=== PATIENT | male | born 1960 | race Caucasian/White ===

== ENCOUNTER 2024-07-04 09:13 | Inpatient (IN) | payer MEDICARE, OTHER ==
[~2024-07-04] VITALS: Ht 172.7 cm; Wt 74.0 kg
--- NOTE | 2024-07-04 10:42 | ED.PDOC ---
Musculoskeletal HPI Comments A 64 YEAR OLD MALE PRESENTS TO THE ED WITH COMPLAINT OF LEFT CALF SWELLING AND BEHIND KNEE PAIN. PATIENT REPORTS THAT HE HAS BEEN EXPERIENCING PAIN BEHIND HIS LEFT KNEE ALONG WITH ASSOCIATED SWELLING AND MILD REDNESS TO THE LEFT CALF FOR THE PAST WEEK. WALKING AND STANDING INCREASES LEFT LOWER LEG PAIN. PATIENT DENIES FEVER, CHILLS, NUMBNESS, WEAKNESS, SHORTNESS OF BREATH, CHEST PAIN, OR OTHER COMPLAINTS. NO OTHER SYMPTOMS OR MODIFYING FACTORS AT THIS TIME. Chief Complaint: Lower Extremity Time Seen by MD: 10:38 Reviewed Notes: Nurses Notes, Medications, Allergies Allergies: Coded Allergies: NO KNOWN ALLERGIES (Unverified , 07/04/24) Information Source: Patient Mode of Arrival: Ambulatory Location: Left Extremity Location: Calf, Knee, Leg Timing: Weeks Prehospital treatment: None Severity: Moderate Able to Move Extremity: Yes Bear Weight: Fully Pain: Moderate Mechanism: Spontaneous Circumstances: Spontaneous Onset of Symptoms: Spontaneous Symptoms: Swelling, Pain, Erythema DVT Risk Factors: NONE Last Tetanus: UTD, Unknown Associated signs and symptoms: Swelling, Leg pain Past Medical History PAST MEDICAL HISTORY: Denies Surgical History: Denies all surgeries Family History Family History: Reviewed,noncontributory to illness Social History Smoker: Non-Smoker Alcohol: Denies ETOH Use Drugs: Denies Drug Use Lives In: Home Constitutional: denies: chills, diaphoresis, fatigue, fever, malaise, sweats, weakness, others EENTM: denies: blurred vision, double vision, ear bleeding, ear discharge, ear drainage, ear pain, ear ringing, eye pain, eye redness, hearing loss, mouth pain, mouth swelling, nasal discharge, nose bleeding, nose congestion, nose pain, photophobia, tearing, throat pain, throat swelling, voice changes, others Respiratory: denies: cough, hemoptysis, orthopnea, SOB at rest, shortness of breath, SOB with excertion, stridor, wheezing, others Cardiovascular: denies: chest pain, dizzy spells, diaphoresis, Dyspnea on exertion, edema, irregular heart beat, left arm pain, lightheadedness, palpitations, PND, syncope, others Gastrointestinal: denies: abdomen distended, abdominal pain, blood streaked bowels, constipated, diarrhea, dysphagia, difficulty swallowing, hematemesis, melena, nausea, poor appetite, poor fluid intake, rectal bleeding, rectal pain, vomiting, others Genitourinary: denies: burning, dysuria, flank pain, frequency, hematuria, incontinence, penile discharge, penile sore, pain, testicle pain, testicle swelling, urgency, others Neurological: denies: dizziness, fainting, headache, left sided numbness, left sided weakness, numbness, paresthesia, pre-existing deficit, right sided numbness, right sided weakness, seizure, speech problems, tingling, tremors, weakness, others Musculoskeletal: reports: muscle pain (LEFT LOWER LEG ), others (LEFT BEHIND KNEE PAIN AND CALF SWELLING/REDNESS); denies: back pain, gout, joint pain, joint swelling, muscle stiffness, neck pain Integumetry: denies: bruises, change in color, change in hair/nails, dryness, laceration, lesions, lumps, rash, wounds, others Allergic/Immunocompromised: denies: Difficulty Healing, Frequent Infections, Hives, Itching, others Hematologic/Lymphatic: denies: anemia, blood clots, easy bleeding, easy bruising, swollen glands, others Endocrine: denies: excessive hunger, excessive sweating, excessive thirst, excessive urination, flushing, intolerance to cold, intolerance to heat, unexplained weight gain, unexplained weight loss, others Psychiatric: denies: anxiety, bipolar disorder, depression, hopeless, panic disorder, schizophrenia, sleepless, suicidal, others All Other Systems: Reviewed and Negative Physical Exam General Appearance: No Apparent Distress, Normal HEENT: Normal ENT Inspection, PERRL/EOMI, Pharynx Normal Neck: Full Range of Motion, Non-Tender, Normal, Normal Inspection Respiratory: Chest Non-Tender, Lungs Clear, No Accessory Muscle Use, No Respiratory Distress, Normal Breath Sounds Cardiovascular: No Edema, No JVD, No Murmur, No Gallop, Normal Peripheral Pulses, Regular Rate/Rhythm Breast Exam: Deferred Gastrointestinal: No Organomegaly, Non Tender, No Pulsatile Mass, Normal Bowel Sounds, Soft Genitalia: Deferred Pelvic: Deferred Rectal: Deferred Extremities: Decreased range of motion, No calf tenderness, Normal capillary refill, No pedal edema, Swelling (AND TENDERNESS WITH MILD ERYTHEMA ON LEFT LOWER LEG, NO INFECTION SIGNS. ), Tender (AND SWELLING ON LEFT LOWER LEG, +DVT SIGNS. ) Musculoskeletal : Apperance: Normal Neurologic: Alert, mechanical apprentice II-XII nml as Tested, No Motor Deficits, Normal Affect, Normal Mood, No Sensory Deficits Cerebellar Function: Normal Reflexes: Normal Skin: Dry, Normal Color, Warm Peripheral Pulses: 2+ dorsalis pedis (R), 2+ dorsalis pedis (L) Lymphatic: No Adenopathy Was a procedure done? Was a procedure done?: No Differential Diagnosis EXT Differential Diagnosis: Cellulitis, Deep Vein Thrombosis, Strain X-Ray, Labs, Meds, VS Vital Signs Date Time Temp Pulse Resp B/P (MAP) Pulse Ox O2 Delivery O2 Flow Rate FiO2 07/04/24 10:26 107 18 96 Room Air 07/04/24 10:26 98.9 107 18 137/93 (108) 96 98.9 07/04/24 09:33 98.9 107 18 137/93 (108) 96 Lab Test 07/04/24 10:49 Range/Units White Blood Count 7.0 4.4-10.8 10^3/uL Red Blood Count 5.29 4.5-5.90 10^6/uL Hemoglobin 15.6 13.5-17.5 g/dL Hematocrit 45.6 41.0-53.0 % Mean Corpuscular Volume 86.3 80.0-100.0 fL Mean Corpuscular Hemoglobin 29.4 28.0-32.0 pg Mean Corpuscular Hemoglobin Concent 34.1 32.0-36.0 g/dL Red Cell Distribution Width 12.8 11.8-14.3 % Platelet Count 285 140-450 10^3/uL Mean Platelet Volume 7.3 6.9-10.8 fL Neutrophils (%) (Auto) 74.9 37.0-80.0 % Lymphocytes (%) (Auto) 14.1 10.0-50.0 % Monocytes (%) (Auto) 7.7 0.0-12.0 % Eosinophils (%) (Auto) 2.6 0.0-7.0 % Basophils (%) (Auto) 0.7 0.0-2.0 % Neutrophils # (Auto) 5.2 1.6-8.6 10 ^3/uL Lymphocytes # (Auto) 1.0 0.4-5.4 10 ^3/uL Monocytes # (Auto) 0.5 0-1.3 10 ^3/uL Eosinophils # (Auto) 0.2 0-0.8 10 ^3/uL Basophils # (Auto) 0 0-0.2 10 ^3/uL Nucleated Red Blood Cells 0.0 % Prothrombin Time 11.1 9.3-11.8 sec Prothrombin Time INR 1.05 0.9-1.15 Sodium Level 144 136-145 mmol/L Potassium Level 4.0 3.5-5.1 mmol/L Chloride Level 114 H 98-107 mmol/L Carbon Dioxide Level 22 20-31 mmol/L Anion Gap 8 5-15 Blood Urea Nitrogen 18 9-23 mg/dL Creatinine 1.15 0.700-1.30 mg/dL Glomerular Filtration Rate Calc 71 >90 mL/min BUN/Creatinine Ratio 15.7 10.0-20.0 Serum Glucose 106 74-106 mg/dL Calcium Level 9.7 8.7-10.4 mg/dL Current Medications Medications (Trade) Dose Ordered Sig/Dorian Route Start Time Stop Time Status Last Admin Enoxaparin Sodium (Lovenox) 70 mg ONCE ONCE SC 07/04/24 10:45 07/04/24 10:46 DC 07/04/24 10:49 Sodium Chloride 1,000 ml @ 125 mls/hr Q8H ONCE IV 07/04/24 11:30 07/04/24 19:29 07/04/24 11:53 X-Ray, Labs, Meds, VS Comment TREATMENT: 70MG LOVENOX SUBQ GIVEN AND 0.9 NS 125ML/HR Time of 1ST Reevaluation: 12:00 Reevaluation 1ST: Unchanged Patient Education/Counseling: Diagnosis, Treatment Family Education/Counseling: Diagnosis, Treatment Departure 1 Departure Time of Disposition: 12:00 Impression: Primary Impression: Acute deep vein thrombosis (DVT) of left lower extremity Qualified Codes: I82.432 - Acute embolism and thrombosis of left popliteal vein Disposition: ADMITTED INPATIENT Condition: Serious Critical Care Note Critical Care Time?: No Stability Stability form required: No Unstable for transfer: Requires medication, ED Physician Assesment, Possible rapid decline Heart Score Heart Score: Heart Score Response (Comments) Value History N/A 0 EKG N/A 0 Age N/A 0 Risk Factors N/A 0 Troponin N/A 0 Total 0 I personally scribed for JUSTEN FERNANDEZ ([email or web address]) on 07/04/24 at 10:42. Electronically submitted by Terence Duarte ([email or web address]). JUSTEN FERNANDEZ Jul 04, 2024 10:42
--- NOTE | 2024-07-04 10:45 | DVH ---
Left lower extremity venous duplex Clinical History: LEFT CALF PAIN Comparison: None Findings: Duplex Doppler evaluation of the deep venous system of the left lower extremity from the common femor al vein to the popliteal vein including color Doppler and spectral/pulsed waveform analysis was perfo rmed. The common femoral vein demonstrates appropriate compressibility and waveform variability . There is compressibility/patency of the great saphenous vein at the proximal thigh . Superficial femoral vein, popliteal vein, posterior tibial vein. Impression: LLE DVT. If clinical concern/symptoms persist or worsen, short-interval follow-up study is suggested.
[2024-07-04] MEDS: ENOXAPARIN SOD 80 MG/0.8ML SYRINGE SC ONE (10:49)
[2024-07-04 11:17] LABS: Basophils # (auto) 0 10 ^3/uL (0-0.2); Basophils % (auto) 0.7 % (0.0-2.0); Eosinophils # (auto) 0.2 10 ^3/uL (0-0.8); Eosinophils % (auto) 2.6 % (0.0-7.0); Hematocrit 45.6 % (41.0-53.0); Hemoglobin 15.6 g/dL (13.5-17.5); Lymphocytes % (auto) 14.1 % (10.0-50.0); Mean Corpuscular Hemoglobin 29.4 pg (28.0-32.0); Mean Corpuscular Hgb Conc. 34.1 g/dL (32.0-36.0); Mean Corpuscular Volume 86.3 fL (80.0-100.0); Monocytes # (auto) 0.5 10 ^3/uL (0-1.3); Monocytes % (auto) 7.7 % (0.0-12.0); Neutrophils # (auto) 5.2 10 ^3/uL (1.6-8.6); Neutrophils % (auto) 74.9 % (37.0-80.0); Platelet Count (auto) 285 10^3/uL (140-450); Red Blood Cells 5.29 10^6/uL (4.5-5.90); Red Cell Distribution Width 12.8 % (11.8-14.3)
[2024-07-04 11:18] LABS: Chloride 114 mmol/L (98-107); Sodium 144 mmol/L (136-145)
[2024-07-04 11:19] LABS: Anion Gap 8 (5-15); Calcium 9.7 mg/dL (8.7-10.4); Carbon Dioxide 22 mmol/L (20-31)
[2024-07-04 11:24] LABS: BUN/Creatinine Ratio 15.7 (10.0-20.0); Blood Urea Nitrogen 18 mg/dL (9-23); Glucose 106 mg/dL (74-106)
[2024-07-04 11:25] LABS: INR 1.05 (0.9-1.15); Prothrombin Time 11.1 sec (9.3-11.8)
[2024-07-04] MEDS: SODIUM CHLORIDE 0.9% 1,000 ML IV ONE (11:53)
[2024-07-04] MEDS ORDERED: ONDANSETRON HCL 4 MG/2 ML VIAL IV PRN (14:15)
[2024-07-04] MEDS ORDERED: ACETAMINOPHEN 325 MG TAB PO PRN (14:15)
[2024-07-04] MEDS ORDERED: HYDROcodone-ACET 5/325MG TAB PO PRN (14:15)
--- NOTE | 2024-07-04 15:29 | DVHHP2 ---
History of Present Illness Reason for Visit: Lower extremity DVT History of Present Illness 64-year-old male presented to the ED with complaint of left calf swelling and pain behind knee. Patient states he has had the pain x1 week. Patient also has mild redness to the left calf for the past week, patient states the pain is not as bad as when it started. Patient is able to walk however walking and standing increases left lower leg pain. Patient was started on Lovenox, and will be admitted to medical/surgical. 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 Patient states no history of any hematologic coagulation disorders, no family history, and no medical history for patient. Patient denies chest pain, headache, dizziness, diaphoresis, shortness of breath, abdominal pain, no nausea, vomiting, fever, or chills endorsed by the patient. Patient was admitted for further evaluation medical management. Past Medical History Denies Past Surgical History Denies all surgeries Family History Reviewed noncontributory to the management of this case Smoke: No ALCOHOL: none Drugs: None Lives: Alone Review of Systems Constitutional: No: Fever, Chills, Sweats, Weakness, Malaise, Other Eyes: No: Pain, Vision change, Conjunctivae inflammation, Eyelid inflammation, Other, Redness ENT: No: Ear pain, Ear discharge, Nose pain, Nose discharge, Nose congestion, Mouth pain, Mouth swelling, Throat pain, Throat swelling, Other Respiratory: No: Cough, Dry, Shortness of breath, SOB with excertion, Wheezing, Hemoptysis, Pleuritic Pain, Sputum, Wheezing, Other Cardiovascular: No: Chest Pain, Palpitations, Orthopnea, Paroxysmal Noc. Dyspnea, Edema, Lt Headedness, Other Gastrointestinal: No: Nausea, Vomiting, Abdominal Pain, Diarrhea, Constipation, Melena, Hematochezia, Other Genitourinary: No Dysuria, No Frequency, No Incontinence, No Hematuria, No Retention, No Other Musculoskeletal: leg pain (Left leg popliteal pain); No: other, neck pain, shoulder pain, arm pain, back pain, hand pain, foot pain Skin: No: Rash, Lesions, Jaundice, Bruising, Other Neurological: No: Weakness, Numbness, Incoordination, Change in speech, Confusion, Seizures, Other Allergies: Coded Allergies: NO KNOWN ALLERGIES (Unverified , 07/04/24) Medications Current Medications Medications Dose Ordered Sig/Dorian Route Start Time Stop Time Status Last Admin Dose Admin Acetaminophen 650 mg Q6HP PRN PO 07/04/24 14:15 Acetaminophen/ Hydrocodone Bitart 1 tab Q4HP PRN PO 07/04/24 14:15 Ondansetron HCl 4 mg Q4HP PRN IV 07/04/24 14:15 Enoxaparin Sodium 70 mg Q12HR SC 07/04/24 22:00 Exam Vital Signs Vital Signs Date Time Temp Pulse Resp B/P (MAP) Pulse Ox O2 Delivery O2 Flow Rate FiO2 07/04/24 10:26 107 18 96 Room Air 07/04/24 10: 98.9 137/93 (108) 98.9 General Appearance: Alert, Oriented X3, Cooperative, No acute distress HEENT: Atraumatic, PERRLA, EOMI, Mucous membr. moist/pink Respiratory: Clear to auscultation, Normal air movement Cardiovascular: Regular rate, Normal S1, Normal S2, No murmurs Abdominal: Normal bowel sounds, Soft, No tenderness, No hepatospenomegaly, No masses Extremities: No clubbing, No cyanosis, No edema, Normal pulses, No t enderness/swelling Skin: No rashes, No breakdown, No significant lesion Neuro: Normal gait, Normal speech, Strength at 5/5 X4 ext, Normal tone, Sensation intact, Cranial nerves 3-12 NL, Reflexes 2+ Psych/Mental Status: Mental status NL, Mood NL Labs/Xrays Labs, imaging and ED notes reviewed Labs Test 07/04/24 10:49 Range/Units White Blood Count 7.0 4.4-10.8 10^3/uL Red Blood Count 5.29 4.5-5.90 10^6/uL Hemoglobin 15.6 13.5-17.5 g/dL Hematocrit 45.6 41.0-53.0 % Mean Corpuscular Volume 86.3 80.0-100.0 fL Mean Corpuscular Hemoglobin 29.4 28.0-32.0 pg Mean Corpuscular Hemoglobin Concent 34.1 32.0-36.0 g/dL Red Cell Distribution Width 12.8 11.8-14.3 % Platelet Count 285 140-450 10^3/uL Mean Platelet Volume 7.3 6.9-10.8 fL Neutrophils (%) (Auto) 74.9 37.0-80.0 % Lymphocytes (%) (Auto) 14.1 10.0-50.0 % Monocytes (%) (Auto) 7.7 0.0-12.0 % Eosinophils (%) (Auto) 2.6 0.0-7.0 % Basophils (%) (Auto) 0.7 0.0-2.0 % Neutrophils # (Auto) 5.2 1.6-8.6 10 ^3/uL Lymphocytes # (Auto) 1.0 0.4-5.4 10 ^3/uL Monocytes # (Auto) 0.5 0-1.3 10 ^3/uL Eosinophils # (Auto) 0.2 0-0.8 10 ^3/uL Basophils # (Auto) 0 0-0.2 10 ^3/uL Nucleated Red Blood Cells 0.0 % Prothrombin Time 11.1 9.3-11.8 sec Prothrombin Time INR 1.05 0.9-1.15 Sodium Level 144 136-145 mmol/L Potassium Level 4.0 3.5-5.1 mmol/L Chloride Level 114 H 98-107 mmol/L Carbon Dioxide Level 22 20-31 mmol/L Anion Gap 8 5-15 Blood Urea Nitrogen 18 9-23 mg/dL Creatinine 1.15 0.700-1.30 mg/dL Glomerular Filtration Rate Calc 71 >90 mL/min BUN/Creatinine Ratio 15.7 10.0-20.0 Serum Glucose 106 74-106 mg/dL Calcium Level 9.7 8.7-10.4 mg/dL Assessment/Plan Assessment/Plan Acute Left lower extremity, popliteal vein DVT Admit to medical/surgical Started on Lovenox Consider Hematology consult outpatient FEN/PPX GI prophylaxis not indicated VTE prophylaxis-Lovenox Regular diet Plan discussed with: Patient My Orders Orders - TERI ROSE Procedure Category Date Status Time Admit ADMIT 07/04/24 Transmitted 14:15 Code Status CODE 07/04/24 Transmitted 14:15 Vital Signs JESSICA 07/04/24 In Process 14:15 Review Orders With JESSICA 07/04/24 In Process Adm. 14:15 Up Ad Khushbu JESSICA 07/04/24 In Process 14:15 Regular Diet DIET 07/04/24 Transmitted Dinner Acetaminophen Tablet PHA 07/04/24 In Process (Tylenol Tablet) 14:15 Notify Of Changes JESSICA 07/04/24 In Process From Base 14:15 Advance Directive JESSICA 07/04/24 In Process 14:15 Patient Condition ORDERS 07/04/24 Transmitted 14:15 Allergies JESSICA 07/04/24 In Process 14:15 Hydrocodone-Acet PHA 07/04/24 In Process 5/325mg Tab ([place] 14:15 Ondansetron Hcl PHA 07/04/24 In Process (Zofran) 14:15 Enoxaparin Sodium PHA 07/04/24 In Process (Lovenox) 22:00 Date of Service: Jul 04, 2024 Billing Provider: TERI ROSE Common Visit Codes: [id number] INP/OBS CARE (HIGH) TERI ROSE Jul 04, 2024 15:29
[2024-07-04] MEDS: ENOXAPARIN SOD 80 MG/0.8ML SYRINGE SC SCH (21:49)
[2024-07-05] VITALS (7 sets, daily range): BP systolic 96–123; BP diastolic 63–88; PULSE 74–84; RESP 16–18; TEMP 97.7–98.4; O2SAT 95–99
--- NOTE | 2024-07-05 14:20 | DVHPN2 ---
Subjective Patient continues to report having pain to left lower leg Reviewed: Care Plan, H&P, Labs, Medications Changes from previous H/P or p: No Changes General: Per HPI Eyes: No Pain, No Vision change, No Conjunctivae inflammation, No Eyelid inflammation, No Other, No Redness ENT: No Ear pain, No Ear discharge, No Nose pain, No Nose discharge, No Nose congestion, No Mouth pain, No Mouth swelling, No Throat pain, No Throat swelling, No Other Cardiovascular: No Chest Pain, No Palpitations, No Orthopnea, No Paroxysmal Noc. Dyspnea, No Edema, No Lt Headedness, No Other Respiratory: No Cough, No Dry, No Shortness of breath, No SOB with excertion, No Wheezing, No Hemoptysis, No Pleuritic Pain, No Sputum, No Other Gastrointestinal: No Nausea, No Vomiting, No Abdominal Pain, No Diarrhea, No Constipation, No Melena, No Hematochezia, No Other Genitourinary: No Dysuria, No Frequency, No Incontinence, No Hematuria, No Retention, No Other Musculoskeletal: No other, No neck pain, No shoulder pain, No arm pain, No back pain, No hand pain; leg pain (Left leg popliteal pain); No foot pain Skin: No Rash, No Lesions, No Jaundice, No Bruising, No Other Objective Vitals Vital Signs Date Time Temp Pulse Resp B/P (MAP) Pulse Ox O2 Delivery O2 Flow Rate FiO2 07/05/24 13:00 97.8 74 17 106/76 (86) 98 97.8 07/05/24 11:57 Room Air* 0 21 Intake/Output Intake and Output 07/05/24 07:00 Intake Total 0 ml Balance 0 ml Intake Oral 0 ml # Voids 1 General Appearance: Alert, Oriented X3, Cooperative, mild distress HEENT: Atraumatic, PERRLA Lungs: Clear to auscultation, Normal air movement Cardiovascular: Normal S1, Normal S2 Abdomen: Normal bowel sounds, Soft, No tenderness, No hepatospenomegaly Musculoskeletal: Normal sensory function, Normal motor function Neuro: Normal gait, Normal speech Psych/Mental Status: Mental status NL, Mood NL Medications Current Medications Medications Dose Ordered Sig/Dorian Route Start Time Stop Time Status Last Admin Dose Admin Acetaminophen 650 mg Q6HP PRN PO 07/04/24 14:15 Acetaminophen/ Hydrocodone Bitart 1 tab Q4HP PRN PO 07/04/24 14:15 Ondansetron HCl 4 mg Q4HP PRN IV 07/04/24 14:15 Enoxaparin Sodium 70 mg Q12HR SC 07/04/24 22:00 07/05/24 09:46 70 MG Laboratory Results Laboratory Tests 07/04/24 10:49 Labs and/or images reviewed: Labs reviewed by me, Image(s) reviewed by me Assessment/Plan Assessment/Plan Impression: -left lower extremity DVT, unprovoked Plan: -long discussion was made with the patient regarding medical history, questionable trauma, as well as activity level. Patient states that he does not go to see a doctor on a normal basis. 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 He denies having long periods of sitting. -continue anticoagulation with Lovenox -consultation with Dr. Aguiar for thrombectomy assessment -given lack of chest pain, dyspnea, normal SpO2, hold off on PE evaluation -pain management -coagulation disorder profile Total time spent with patient discussing and formulating plan of care: 35 minutes. Total time spent with patient and family regarding advance care plannin minutes. This medical document was created using an electronic medical record system with [employer] dictation system. Although this document has been carefully reviewed, there may still be some phonetic and typographical errors. These areas are purely typographical due to imperfections of the software programs, and do not reflect any compromise in the patient's medical care. Plan discussed with: Patient, Other (RN) My Orders Orders - JAMI BELL NP Procedure Category Date Status Time *Consult Dr. Aguiar CONS 07/05/24 Transmitted 14:03 Date of Service: Jul 05, 2024 Billing Provider: JAMI BELL NP Common Visit Codes: [id number] INP/OBS CARE(HIGH) Secondary Visit Codes: [id number] CARE PLAN 30 MINUTES JAMI BELL NP Jul 05, 2024 14:20
[2024-07-05 15:21] LABS: Prostate Specific Antigen 3.26 ng/mL (0.0-4.0)
[2024-07-05 15:25] LABS: Carcinoembryonic Antigen < 0.50 ng/mL (<=5.0)
--- NOTE | 2024-07-05 19:09 | DVHINCON2 ---
Date of service: Jul 05, 2024 History of Present Illness 64-year-old male presented to the ED with complaint of left calf swelling and pain behind knee. Patient states he has had the pain x1 week. Patient also has mild redness to the left calf for the past week, patient states the pain is not as bad as when it started. Patient is able to walk however walking and standing increases left lower leg pain. Patient was started on Lovenox, and will be admitted to medical/surgical. 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 Patient states no history of any hematologic coagulation disorders, no family history, and no medical history for patient. Patient denies chest pain, headache, dizziness, diaphoresis, shortness of breath, abdominal pain, no nausea, vomiting, fever, or chills endorsed by the patient. Patient was admitted for further evaluation medical management. Past Medical History Denies Past Surgical History Denies all surgeries Family History Reviewed noncontributory to the management of this case Smoke: No ALCOHOL: none Drugs: None Lives: Alone Past Medical History reviewed Family History: FH: lung cancer Allergies: Coded Allergies: NO KNOWN ALLERGIES (Unverified , 07/04/24) Current Medications Current Medications Medications (Trade) Dose Ordered Sig/Dorian Route PRN Reason Start Time Stop Time Status Last Admin Enoxaparin Sodium (Lovenox) 70 mg Q12HR SC 07/04/24 22:00 07/05/24 09:46 Review of Systems 10 pt ros otherwise negative Vital Signs Vital Signs Date Time Temp Pulse Resp B/P (MAP) Pulse Ox O2 Delivery O2 Flow Rate FiO2 07/05/24 16:41 97.9 81 17 107/70 (82) 97 97.9 07/05/24 11:57 Room Air* 0 21 Physical Exam nad s1 s2 rrr ctab soft nt/nd +LLE swelling Labs/Diagnostic Data Labs Test 07/05/24 16:14 07/05/24 14:30 07/04/24 10:49 Range/Units Lactate Dehydrogenase 196 120-246 U/L Carcinoembryonic Antigen < 0.50 <=5.0 ng/mL Prostate Specific Antigen 3.26 0.0-4.0 ng/mL White Blood Count 7.0 4.4-10.8 10^3/uL Red Blood Count 5.29 4.5-5.90 10^6/uL Hemoglobin 15.6 13.5-17.5 g/dL Hematocrit 45.6 41.0-53.0 % Mean Corpuscular Volume 86.3 80.0-100.0 fL Mean Corpuscular Hemoglobin 29.4 28.0-32.0 pg Mean Corpuscular Hemoglobin Concent 34.1 32.0-36.0 g/dL Red Cell Distribution Width 12.8 11.8-14.3 % Platelet Count 285 140-450 10^3/uL Mean Platelet Volume 7.3 6.9-10.8 fL Neutrophils (%) (Auto) 74.9 37.0-80.0 % Lymphocytes (%) (Auto) 14.1 10.0-50.0 % Monocytes (%) (Auto) 7.7 0.0-12.0 % Eosinophils (%) (Auto) 2.6 0.0-7.0 % Basophils (%) (Auto) 0.7 0.0-2.0 % Neutrophils # (Auto) 5.2 1.6-8.6 10 ^3/uL Lymphocytes # (Auto) 1.0 0.4-5.4 10 ^3/uL Monocytes # (Auto) 0.5 0-1.3 10 ^3/uL Eosinophils # (Auto) 0.2 0-0.8 10 ^3/uL Basophils # (Auto) 0 0-0.2 10 ^3/uL Nucleated Red Blood Cells 0.0 % Prothrombin Time 11.1 9.3-11.8 sec Prothrombin Time INR 1.05 0.9-1.15 Sodium Level 144 136-145 mmol/L Potassium Level 4.0 3.5-5.1 mmol/L Chloride Level 114 H 98-107 mmol/L Carbon Dioxide Level 22 20-31 mmol/L Anion Gap 8 5-15 Blood Urea Nitrogen 18 9-23 mg/dL Creatinine 1.15 0.700-1.30 mg/dL Glomerular Filtration Rate Calc 71 >90 mL/min BUN/Creatinine Ratio 15.7 10.0-20.0 Serum Glucose 106 74-106 mg/dL Calcium Level 9.7 8.7-10.4 mg/dL Assessment acute dvt occlusive htn Plan/Recommendation reviewed US imagies recommend thrombectomy, pt will consider it after risks benefits and alternatives check echo consider c/a/p CT lovenox suspected may thurners Plan discussed with: Patient KAYDEN PINEDO MD Jul 05, 2024 19:09
[2024-07-06 05:00] VITALS: BP 114/72; PULSE 98; RESP 18; TEMP 97; O2SAT 99
[2024-07-06 08:00] VITALS: BP 113/82; PULSE 82; RESP 18; TEMP 97.4; O2SAT 93
--- NOTE | 2024-07-06 08:42 | DVHPN2 ---
Progress Note Date Seen: Jul 06, 2024 Medical Necessity Reason Pt with a Central, PICC or Fol: No Objective vital signs Vital Sign Date Time Temp Pulse Resp B/P (MAP) Pulse Ox O2 Delivery O2 Flow Rate FiO2 07/06/24 05:00 97.0 98 18 114/72 (86) 99 97.0 07/05/24 20:00 Room Air* 0 21 Total Intake and Output 07/05/24 07/05/24 07/06/24 15:00 23:00 07:00 Intake Total 750 ml 200 ml Balance 750 ml 200 ml medications Current Medications Medications Dose Ordered Sig/Dorian Route Start Time Stop Time Status Last Admin Dose Admin Acetaminophen 650 mg Q6HP PRN PO 07/04/24 14:15 Acetaminophen/ Hydrocodone Bitart 1 tab Q4HP PRN PO 07/04/24 14:15 Ondansetron HCl 4 mg Q4HP PRN IV 07/04/24 14:15 Enoxaparin Sodium 70 mg Q12HR SC 07/04/24 22:00 07/05/24 21:51 70 MG Examination: GENERAL:Abnormal, HEENT:Abnormal, LUNGS:Abnormal, CVS:Abnormal, ABDOMEN:Abnormal laboratory and microbiology Laboratory Tests 07/04/24 10:49 Test 07/04/24 10:49 Range/Units Serum Glucose 106 74-106 mg/dL Problem List/Assessment/Plan Problem List/Assessment/Plan occlusive dvt htn leg pain r/o may thurner check cta recommend thrombectomy cont lovenox for now Plan discussed with: Patient My Orders My Orders Orders - KAYDEN PINEDO MD Procedure Category Date Status Time Cl Transcath Ther Non CL 07/05/24 Logged Thrombo 19:07 Plastic Mould Maker: Obtain ORDERS 07/05/24 Transmitted Consent For: 19:07 Echo 2d Mode Cardiac US 07/06/24 Logged DOP 19:[address] 07/06/24 Logged Contrast 08:38 Date of Service: Jul 06, 2024 Billing Provider: KAYDEN PINEDO MD Common Visit Codes: NOT BILLABLE KAYDEN PINEDO MD Jul 06, 2024 08:42
[2024-07-06 12:00] VITALS: BP 110/78; PULSE 70; RESP 18; TEMP 97.9; O2SAT 97
[2024-07-06] MEDS: IOHEXOL 350 MG/ML 100ML IJ ONE (12:35)
--- NOTE | 2024-07-06 13:27 | DVHPN2 ---
Subjective Patient continues to report having pain to left lower leg Reviewed: Care Plan, H&P, Labs, Medications Changes from previous H/P or p: No Changes General: Per HPI Eyes: No Pain, No Vision change, No Conjunctivae inflammation, No Eyelid inflammation, No Other, No Redness ENT: No Ear pain, No Ear discharge, No Nose pain, No Nose discharge, No Nose congestion, No Mouth pain, No Mouth swelling, No Throat pain, No Throat swelling, No Other Cardiovascular: No Chest Pain, No Palpitations, No Orthopnea, No Paroxysmal Noc. Dyspnea, No Edema, No Lt Headedness, No Other Respiratory: No Cough, No Dry, No Shortness of breath, No SOB with excertion, No Wheezing, No Hemoptysis, No Pleuritic Pain, No Sputum, No Other Gastrointestinal: No Nausea, No Vomiting, No Abdominal Pain, No Diarrhea, No Constipation, No Melena, No Hematochezia, No Other Genitourinary: No Dysuria, No Frequency, No Incontinence, No Hematuria, No Retention, No Other Musculoskeletal: No other, No neck pain, No shoulder pain, No arm pain, No back pain, No hand pain; leg pain (Left leg popliteal pain); No foot pain Skin: No Rash, No Lesions, No Jaundice, No Bruising, No Other Objective Vitals Vital Signs Date Time Temp Pulse Resp B/P (MAP) Pulse Ox O2 Delivery O2 Flow Rate FiO2 07/06/24 08:00 97.4 82 18 113/82 (92) 93 97.4 07/05/24 20:00 Room Air* 0 21 Intake/Output Intake and Output 07/06/24 07:00 Intake Total 950 ml Balance 950 ml Intake Oral 950 ml # Voids 2 # Bowel Movements 1 General Appearance: Alert, Oriented X3, Cooperative, mild distress HEENT: Atraumatic, PERRLA Lungs: Clear to auscultation, Normal air movement Cardiovascular: Normal S1, Normal S2 Abdomen: Normal bowel sounds, Soft, No tenderness, No hepatospenomegaly Musculoskeletal: Normal sensory function, Normal motor function Neuro: Normal gait, Normal speech Psych/Mental Status: Mental status NL, Mood NL Medications Current Medications Medications Dose Ordered Sig/Dorian Route Start Time Stop Time Status Last Admin Dose Admin Acetaminophen 650 mg Q6HP PRN PO 07/04/24 14:15 Acetaminophen/ Hydrocodone Bitart 1 tab Q4HP PRN PO 07/04/24 14:15 Ondansetron HCl 4 mg Q4HP PRN IV 07/04/24 14:15 Enoxaparin Sodium 70 mg Q12HR SC 07/04/24 22:00 07/06/24 10:33 70 MG Laboratory Results Laboratory Tests 07/04/24 10:49 Coagulation Test 07/05/24 16:14 Prothrombin Time Diluted Pending Dilute PT Confirmation Ratio Pending Thrombin Time Pending Dilute Gold Viper Venom (Lupus) Pending Lupus Anticoagulant Interpretation Pending Protein C Antigen Pending Protein S Antigen Pending Free Protein S Antigen Pending Factor V Leiden Mutation Pending Labs and/or images reviewed: Labs reviewed by me, Image(s) reviewed by me Assessment/Plan Assessment/Plan Impression: -left lower extremity DVT, unprovoked Plan: -events: No events overnight -continue anticoagulation with Lovenox -consultation with Dr. Aguiar: Recommendations reviewed by Dr. Aguiar. Patient to have echocardiogram as well as CT angiogram of the chest -pain management -coagulation disorder profile Total time spent with patient discussing and formulating plan of care: 35 minutes. This medical document was created using an electronic medical record system with [employer] dictation system. Although this document has been carefully reviewed, there may still be some phonetic and typographical errors. These areas are purely typographical due to imperfections of the software programs, and do not reflect any compromise in the patient's medical care. Plan discussed with: Patient, Other (RN) My Orders Orders - JAMI BELL NP Procedure Category Date Status Time *Consult Dr. Aguiar CONS 07/05/24 Transmitted 14:03 Lupus Anticoagulant LAB 07/05/24 In Process Comp 14:13 Protein C Antigen LAB 07/05/24 In Process 14:13 Protein S-Antigen LAB 07/05/24 In Process Total & Free 14:13 Factor V Leiden LAB 07/05/24 In Process Mutation 14:13 Date of Service: Jul 06, 2024 Billing Provider: JAMI BELL NP Common Visit Codes: [id number] INP/OBS CARE(HIGH) JAMI BELL NP Jul 06, 2024 13:27
--- NOTE | 2024-07-06 14:08 | DVH ---
CTA Chest with intravenous contrast INDICATION: ro PE, occlusive DVT< r/ o may thurner COMPARISON: None TECHNIQUE: Multidetector spiral CTA of the chest was performed of the chest with intravenous contrast . PULMONARY ANGIOGRAPHY PROTOCOL was utilized using a bolus-tracking technique centered on the main p ulmonary artery. Axial, coronal and sagittal multiplanar and MIP reformats were performed. Radiation Dose : 1. Chest: CTDI volume is 20.7 mGy. Dose-length product is 648.99 mGy*cm The dose indicators for CT are the volume Computed Tomography (CT) Dose Index (CTDIvol) and the Dose Length Product (DLP), and are measured in units of mGy and mGy-cm, respectively. These indicators are not patient dose, but values generated from the CT scanner acquisition factors. The report includes radiation exposure data for exposures received during this examination. Findings: Pulmonary artery: Positive pulmonary embolism involving the distal left main pulmonary artery extending into lower lobe segmental and subsegmental branches. Small pulmonary embolism is present in right lower lobe subsegm ental branches. Lower neck: Normal thyroid. Lungs: No focal consolidation, pleural effusion or pneumothorax. Dependent atelectasis. Heart/Vascular Structures: Cardiomegaly. Coronary artery calcifications. Vascular calcifications of t he aorta. No definite findings of right heart strain. Lymph Nodes: No adenopathy Pleura: No pleural effusion or significant pneumothorax. Musculoskeletal: No acute osseous abnormality. Soft tissues: Normal. Upper abdomen: Limited portions of the upper abdomen are unremarkable. IMPRESSION: Positive pulmonary embolism involving the distal left main pulmonary artery extending into segmental and subsegmental branches in the left lower lobe. Positive pulmonary embolism in right lower lobe segmental and subsegmental branches. No definite secondary CT signs of right heart strain. Recommend correlation with echocardiogram. Cl inical correlation advised. Critical Result: Pumonary Emboli Findings discussed with JAMI BELL at 07/06/2024 02:04 PM, and acknowledged receipt and unders tanding of the findings.
--- NOTE | 2024-07-06 15:47 | DVHSR ---
APPROVED REPORT EXAM: Two-dimensional and M-mode echocardiogram with Doppler and color Doppler. Blood Pressure: 114/72 mmHg INDICATION Hx of dvt HTN RISK FACTORS Height: 5'8", Weight: 164 DIMENSIONS LVDd4.1 (3.8-5.7cm)LA (2D)3.4 (1.9-4.0cm)Aortic Root3.3 (2.0-3.7cm) LVDs2.9 (2.5-4.0cm)LA (MM) (1.9-4.0cm)Aortic Cusp Exc1.9 (1.5-2.0cm) EF (%) 60.0 (55-70%)Rt. Atrium3.8 (1.9-4.0cm)Asc. Aorta cm IVSd1.1 (0.7-1.1cm)RV (D)3.4 (1.8-2.4cm) PWd0.9 (0.7-1.1cm) Mitral Valve MitralMitral Stenosis E wave0.64m/sMV Mean GR.mmHg A wave0.43m/sMV Peak GR.mmHg E/A ratio1.52D MVAcm2 DECEL [id number] 1/2 Timems Aortic Valve Aortic ValveAortic Stenosis V10.92m/Cori Mean GR.2mmHg V20.98m/Cori Peak GR.4mmHg LVOT Diameter2.0 (1.8-2.4cm)Doppler AVA2.95cm2 Pulmonic Valve V20.93m/s Tricuspid Valve TR Velocity2.28m/s [id number] Conclusion lvef 55% by visual estimate normal rv function but borderline enlarged left atrium enlarged mild mitral regurg
[2024-07-06 16:00] VITALS: BP 107/74; PULSE 67; RESP 18; TEMP 98.2; O2SAT 97
--- NOTE | 2024-07-07 11:16 | DVHPN2 ---
Progress Note Date Seen: Jul 07, 2024 Medical Necessity Reason Pt with a Central, PICC or Fol: No Subjective Patient reports: Feels better Other Systems: PE noted on CT images reviewed Objective vital signs Vital Sign Date Time Temp Pulse Resp B/P (MAP) Pulse Ox O2 Delivery O2 Flow Rate FiO2 07/07/24 08:00 Room Air* 0 21 07/06/24 16:00 98.2 67 18 107/74 (85) 97 98.2 Total Intake and Output 07/06/24 07/06/24 07/07/24 15:00 23:00 07:00 Intake Total 500 ml Balance 500 ml medications Current Medications Medications Dose Ordered Sig/Dorian Route Start Time Stop Time Status Last Admin Dose Admin Acetaminophen 650 mg Q6HP PRN PO 07/04/24 14:15 Acetaminophen/ Hydrocodone Bitart 1 tab Q4HP PRN PO 07/04/24 14:15 Ondansetron HCl 4 mg Q4HP PRN IV 07/04/24 14:15 Enoxaparin Sodium 70 mg Q12HR SC 07/04/24 22:00 07/07/24 10:12 70 MG Examination: GENERAL:Abnormal, HEENT:Abnormal, LUNGS:Abnormal, CVS:Abnormal, ABDOMEN:Abnormal laboratory and microbiology Laboratory Tests 07/04/24 10:49 Test 07/04/24 10:49 Range/Units Serum Glucose 106 74-106 mg/dL Problem List/Assessment/Plan Problem List/Assessment/Plan occlusive dvt htn leg pain r/o may urner check cta recommend thrombectomy cont lovenox for now PE noted---no elevated biomarker, on room air, no RV strain, no indication for thrombectomy of PE at this time had long talk with pt and RN he wishes to proceed with dvt eval d/w risks benefits and alternatives Plan discussed with: Patient Date of Service: Jul 07, 2024 Billing Provider: KAYDEN PINEDO MD Common Visit Codes: NOT BILLABLE KAYDEN PINEDO MD Jul 07, 2024 11:16
[2024-07-07 13:00] VITALS: BP 118/79; PULSE 67; RESP 16; TEMP 97.6; O2SAT 98
--- NOTE | 2024-07-07 13:32 | DVHPN2 ---
Subjective Patient continues to report having pain to left lower leg Reviewed: Care Plan, H&P, Labs, Medications Changes from previous H/P or p: No Changes General: Per HPI Eyes: No Pain, No Vision change, No Conjunctivae inflammation, No Eyelid inflammation, No Other, No Redness ENT: No Ear pain, No Ear discharge, No Nose pain, No Nose discharge, No Nose congestion, No Mouth pain, No Mouth swelling, No Throat pain, No Throat swelling, No Other Cardiovascular: No Chest Pain, No Palpitations, No Orthopnea, No Paroxysmal Noc. Dyspnea, No Edema, No Lt Headedness, No Other Respiratory: No Cough, No Dry, No Shortness of breath, No SOB with excertion, No Wheezing, No Hemoptysis, No Pleuritic Pain, No Sputum, No Other Gastrointestinal: No Nausea, No Vomiting, No Abdominal Pain, No Diarrhea, No Constipation, No Melena, No Hematochezia, No Other Genitourinary: No Dysuria, No Frequency, No Incontinence, No Hematuria, No Retention, No Other Musculoskeletal: No other, No neck pain, No shoulder pain, No arm pain, No back pain, No hand pain; leg pain (Left leg popliteal pain); No foot pain Skin: No Rash, No Lesions, No Jaundice, No Bruising, No Other Objective Vitals Vital Signs Date Time Temp Pulse Resp B/P (MAP) Pulse Ox O2 Delivery O2 Flow Rate FiO2 07/07/24 13:00 97.6 67 16 118/79 (92) 98 97.6 07/07/24 08:00 Room Air* 0 21 Intake/Output Intake and Output 07/07/24 07:00 Intake Total 500 ml Balance 500 ml Intake Oral 500 ml # Voids 4 # Bowel Movements 1 General Appearance: Alert, Oriented X3, Cooperative, mild distress HEENT: Atraumatic, PERRLA Lungs: Clear to auscultation, Normal air movement Cardiovascular: Normal S1, Normal S2 Abdomen: Normal bowel sounds, Soft, No tenderness, No hepatospenomegaly Musculoskeletal: Normal sensory function, Normal motor function Neuro: Normal gait, Normal speech Skin: Dry, Intact Psych/Mental Status: Mental status NL, Mood NL Medications Current Medications Medications Dose Ordered Sig/Dorian Route Start Time Stop Time Status Last Admin Dose Admin Acetaminophen 650 mg Q6HP PRN PO 07/04/24 14:15 Acetaminophen/ Hydrocodone Bitart 1 tab Q4HP PRN PO 07/04/24 14:15 Ondansetron HCl 4 mg Q4HP PRN IV 07/04/24 14:15 Enoxaparin Sodium 70 mg Q12HR SC 07/04/24 22:00 07/07/24 10:12 70 MG Laboratory Results Laboratory Tests 07/04/24 10:49 Labs and/or images reviewed: Labs reviewed by me, Image(s) reviewed by me Assessment/Plan Assessment/Plan Impression: -left lower extremity DVT, unprovoked -Left main pulmonary embolus Plan: -events: No events overnight -continue anticoagulation with Lovenox -cardiology consultation with Dr. Aguiar. Echocardiogram reviewed. Plans for thrombectomy tomorrow -pain management -coagulation disorder profile Total time spent with patient discussing and formulating plan of care: 35 minutes. This medical document was created using an electronic medical record system with [employer] dictation system. Although this document has been carefully reviewed, there may still be some phonetic and typographical errors. These areas are purely typographical due to imperfections of the software programs, and do not reflect any compromise in the patient's medical care. Plan discussed with: Patient, Other (RN) Date of Service: Jul 07, 2024 Billing Provider: JAMI BELL NP Common Visit Codes: [id number] INP/OBS CARE(HIGH) JAMI BELL NP Jul 07, 2024 13:32
[2024-07-07 17:00] VITALS: BP 100/75; PULSE 88; RESP 16; TEMP 97.7; O2SAT 97
[2024-07-07 22:00] VITALS: BP 102/73; PULSE 77; RESP 18; TEMP 98.3; O2SAT 97
[2024-07-08] VITALS (9 sets, daily range): BP systolic 87–108; BP diastolic 65–74; PULSE 65–112; RESP 12–18; TEMP 97.6–98.4; O2SAT 94–99
[2024-07-08 06:12] LABS: Basophils # (auto) 0 10 ^3/uL (0-0.2); Basophils % (auto) 0.7 % (0.0-2.0); Eosinophils # (auto) 0.2 10 ^3/uL (0-0.8); Eosinophils % (auto) 3.1 % (0.0-7.0); Hematocrit 44.3 % (41.0-53.0); Hemoglobin 15.2 g/dL (13.5-17.5); Lymphocytes # (auto) 1.3 10 ^3/uL (0.4-5.4); Lymphocytes % (auto) 22.4 % (10.0-50.0); Mean Corpuscular Hemoglobin 29.3 pg (28.0-32.0); Mean Corpuscular Hgb Conc. 34.3 g/dL (32.0-36.0); Mean Corpuscular Volume 85.4 fL (80.0-100.0); Monocytes # (auto) 0.5 10 ^3/uL (0-1.3); Monocytes % (auto) 9.1 % (0.0-12.0); Neutrophils # (auto) 3.8 10 ^3/uL (1.6-8.6); Neutrophils % (auto) 64.7 % (37.0-80.0); Nucleated Red Blood Cells % 0.2 %; Platelet Count (auto) 282 10^3/uL (140-450); Red Blood Cells 5.19 10^6/uL (4.5-5.90); Red Cell Distribution Width 12.7 % (11.8-14.3); White Blood Cell 5.8 10^3/uL (4.4-10.8)
[2024-07-08 06:20] LABS: INR 1.02 (0.9-1.15); Partial Thromboplastin Time 33.2 SEC (24.5-34.5); Prothrombin Time 10.8 sec (9.3-11.8)
[2024-07-08 06:21] LABS: Amphetamine Screen, Urine Neg (NEGATIVE); Barbiturate Scree,Urine Neg (NEGATIVE); Benzodiazephine Screen, Urine Neg (NEGATIVE); Cocaine Screen, Urine Neg (NEGATIVE)
[2024-07-08 06:22] LABS: Cannabinoid Screen, Urine Neg (NEGATIVE); Opiate Scree,Urine Neg (NEGATIVE); Phencyclidine Screen, Urine Neg (NEGATIVE)
[2024-07-08 06:36] LABS: Alanine Aminotransferase 47 U/L (7-40); Albumin 3.9 g/dL (3.2-4.8); Alkaline Phosphatase 98 U/L (46-116); Anion Gap 6 (5-15); Aspartate Aminotransferase 36 U/L (13-40); BUN/Creatinine Ratio 13.3 (10.0-20.0); Blood Urea Nitrogen 15 mg/dL (9-23); Calcium 9.3 mg/dL (8.7-10.4); Carbon Dioxide 24 mmol/L (20-31); Chloride 113 mmol/L (98-107); Glucose 92 mg/dL (74-106); Potassium 3.9 mmol/L (3.5-5.1); Sodium 143 mmol/L (136-145)
[2024-07-08 06:37] LABS: Bilirubin, Total 0.5 mg/dL (0.2-1.0); Total Protein 6.4 g/dL (5.7-8.2)
[2024-07-08 06:56] LABS: Urine Bacteria None Seen /hpf (None Seen)
[2024-07-08 07:21] LABS: Urine Blood Negative /uL (Negative); Urine Clarity Clear (Clear); Urine Color Yellow (Yellow); Urine Mucus FEW (None Seen); Urine Protein, UAD Negative (Negative); Urine Specific Gravity 1.025 (1.001-1.035); Urine Urobilinogen Normal (Negative); Urine WBC 2 /hpf (0 - 3); Urine pH 5.5 (5.0-9.0)
--- NOTE | 2024-07-08 11:39 | DVHPN2 ---
Subjective Patient continues to report having pain to left lower leg Reviewed: Care Plan, H&P, Labs, Medications Changes from previous H/P or p: No Changes General: Per HPI Eyes: No Pain, No Vision change, No Conjunctivae inflammation, No Eyelid inflammation, No Other, No Redness ENT: No Ear pain, No Ear discharge, No Nose pain, No Nose discharge, No Nose congestion, No Mouth pain, No Mouth swelling, No Throat pain, No Throat swelling, No Other Cardiovascular: No Chest Pain, No Palpitations, No Orthopnea, No Paroxysmal Noc. Dyspnea, No Edema, No Lt Headedness, No Other Respiratory: No Cough, No Dry, No Shortness of breath, No SOB with excertion, No Wheezing, No Hemoptysis, No Pleuritic Pain, No Sputum, No Other Gastrointestinal: No Nausea, No Vomiting, No Abdominal Pain, No Diarrhea, No Constipation, No Melena, No Hematochezia, No Other Genitourinary: No Dysuria, No Frequency, No Incontinence, No Hematuria, No Retention, No Other Musculoskeletal: No other, No neck pain, No shoulder pain, No arm pain, No back pain, No hand pain; leg pain (Left leg popliteal pain); No foot pain Skin: No Rash, No Lesions, No Jaundice, No Bruising, No Other Objective Vitals Vital Signs Date Time Temp Pulse Resp B/P (MAP) Pulse Ox O2 Delivery O2 Flow Rate FiO2 07/08/24 05:00 97.7 70 18 102/67 (79) 98 97.7 07/07/24 20:00 Room Air* 0 21 Intake/Output Intake and Output 07/08/24 07:00 Intake Total 885 ml Balance 885 ml Intake Oral 885 ml # Voids 2 # Bowel Movements 1 General Appearance: Alert, Oriented X3, Cooperative, mild distress HEENT: Atraumatic, PERRLA Lungs: Clear to auscultation, Normal air movement Cardiovascular: Normal S1, Normal S2 Abdomen: Normal bowel sounds, Soft, No tenderness, No hepatospenomegaly Musculoskeletal: Normal sensory function, Normal motor function Neuro: Normal gait, Normal speech Skin: Dry, Intact Psych/Mental Status: Mental status NL, Mood NL Medications Current Medications Medications Dose Ordered Sig/Dorian Route Start Time Stop Time Status Last Admin Dose Admin Acetaminophen 650 mg Q6HP PRN PO 07/04/24 14:15 Acetaminophen/ Hydrocodone Bitart 1 tab Q4HP PRN PO 07/04/24 14:15 Ondansetron HCl 4 mg Q4HP PRN IV 07/04/24 14:15 Enoxaparin Sodium 70 mg Q12HR SC 07/04/24 22:00 07/07/24 21:53 70 MG Laboratory Results Laboratory Tests 07/08/24 05:22 Chemistry Test 07/08/24 05:22 Albumin 3.9 g/dL (3.2-4.8) Calcium Level 9.3 mg/dL (8.7-10.4) Total Protein 6.4 g/dL (5.7-8.2) Coagulation Test 07/08/24 05:22 Prothrombin Time 10.8 sec (9.3-11.8) Prothrombin Time INR 1.02 (0.9-1.15) Activated Partial Thromboplast Time 33.2 SEC (24.5-34.5) LFT Test 07/08/24 05:22 Alanine Aminotransferase (ALT) 47 U/L (7-40) H Alkaline Phosphatase 98 U/L (46-116) Aspartate Amino Transferase (AST) 36 U/L (13-40) Total Bilirubin 0.5 mg/dL (0.2-1.0) Urinalysis Test 07/08/24 05:33 Urine Color Yellow (Yellow) Urine Clarity Clear (Clear) Urine pH 5.5 (5.0-9.0) Urine Specific [place] 1.025 (1.001-1.035) Urine Protein Negative (Negative) Urine Ketones Negative (Negative) Urine Blood Negative /uL (Negative) Urine Nitrite Negative (Negative) Urine Bilirubin Negative (Negative) Urine Urobilinogen Normal mg/dL (Negative) Urine Leukocyte Esterase Negative /uL (Negative) Urine RBC None seen /hpf (0 - 3) Urine WBC 2 /hpf (0 - 3) Urine Squamous Epithelial Cells None seen /hpf (<5) Urine Bacteria None seen /hpf (None Seen) Urine Mucus Few (None Seen) Urine Glucose Normal mg/dL (Normal) Labs and/or images reviewed: Labs reviewed by me, Image(s) reviewed by me Assessment/Plan Assessment/Plan Impression: -left lower extremity DVT, unprovoked -Left main pulmonary embolus Plan: -events: No events overnight. Plans for thrombectomy today. -hold Lovenox today. Transitioned to [facility] or tomorrow -cardiology consultation with Dr. Aguiar. Echocardiogram reviewed. -pain management -coagulation disorder profile: Pending -repeat labs in Total time spent with patient discussing and formulating plan of care: 35 minutes. This medical document was created using an electronic medical record system with [employer] dictation system. Although this document has been carefully reviewed, there may still be some phonetic and typographical errors. These areas are purely typographical due to imperfections of the software programs, and do not reflect any compromise in the patient's medical care. Plan discussed with: Patient, Other (RN) My Orders Orders - JAMI BELL NP Procedure Category Date Status Time Urine Dip ED NURSING 07/08/24 Transmitted Basic Metabolic Panel LAB 07/09/24 Verified 04:00 Hemoglobin & LAB 07/09/24 Verified Hematocrit 04:00 * Insurance Examining Clerk CONS 07/08/24 Transmitted Consult Date of Service: Jul 08, 2024 Billing Provider: JAMI BELL NP Common Visit Codes: [id number] INP/OBS CARE(HIGH) JAMI BELL NP Jul 08, 2024 11:39
[2024-07-08] MEDS: IODIXANOL 320MG/ML 100ML BTL IV ONE (15:00)
[2024-07-08] MEDS: HEPARIN IN NS 1000Units/500mL 1,500 ML ONE (15:00)
[2024-07-08] MEDS: ANGIOMAX 250 MG VIAL IV ONE (15:35)
[2024-07-08] MEDS: SODIUM CHL 0.9% 0 ML ONE (15:35)
[2024-07-08] MEDS: MIDAZOLAM HCL 2MG/2ML 2ml VIAL (1mg/ml) ONE (15:35)
[2024-07-08] MEDS: fentaNYL CITRATE 100 MCG/2 ML VL ONE (15:35)
[2024-07-08] MEDS: LIDOCAINE 2%HCL (LOCAL ANESTH.) INJ 20ML MDV ONE (15:36)
[2024-07-08] MEDS: HEPARIN SODIUM (PORCINE) 5000 UNITS/ML 1ML VIAL ONE (16:00)
--- NOTE | 2024-07-08 17:16 | DVHPN2 ---
Progress Note Date Seen: Jul 08, 2024 Medical Necessity Reason Pt with a Central, PICC or Fol: No Subjective Patient reports: Feels better Other Systems: sp thrombectomy Objective vital signs Vital Sign Date Time Temp Pulse Resp B/P (MAP) Pulse Ox O2 Delivery O2 Flow Rate FiO2 07/08/24 05:00 97.7 70 18 102/67 (79) 98 97.7 07/07/24 20:00 Room Air* 0 21 Total Intake and Output 07/07/24 07/07/24 07/08/24 15:00 23:00 07:00 Intake Total 560 ml 325 ml Balance 560 ml 325 ml medications Current Medications Medications Dose Ordered Sig/Dorian Route Start Time Stop Time Status Last Admin Dose Admin Acetaminophen 650 mg Q6HP PRN PO 07/04/24 14:15 Acetaminophen/ Hydrocodone Bitart 1 tab Q4HP PRN PO 07/04/24 14:15 Ondansetron HCl 4 mg Q4HP PRN IV 07/04/24 14:15 Enoxaparin Sodium 70 mg Q12HR SC 07/04/24 22:00 07/07/24 21:53 70 MG Examination: GENERAL:Abnormal, HEENT:Abnormal, LUNGS:Abnormal, CVS:Normal, ABDOMEN:Abnormal laboratory and microbiology Laboratory Tests 07/08/24 05:22 Test 07/08/24 05:22 Range/Units Serum Glucose 92 74-106 mg/dL Problem List/Assessment/Plan Problem List/Assessment/Plan occlusive dvt htn leg pain r/o may thurner check cta recommend thrombectomy cont lovenox for now PE noted---no elevated biomarker, on room air, no RV strain, no indication for thrombectomy of PE at this time had long talk with pt and RN he wishes to proceed with dvt eval d/w risks benefits and alternatives s/p thrombectomy with extensive thrombus removal resume blood thinners for pt doac pt may eventually need venous stent for suspected may thurners , pt is aware Plan discussed with: Patient My Orders My Orders Orders - KAYDEN PINEDO MD Procedure Category Date Status Time Cl Sc Inj Venogram CL 07/08/24 Taken Extremty Bi 07:36 Us Guided Vascular US 07/08/24 Logged Access 07:36 Yarn Weight And Strength Tester: Obtain ORDERS 07/08/24 Transmitted Consent For: 14:30 Us Guidance For US 07/08/24 Taken Needle Placeme 15:42 Date of Service: Jul 08, 2024 Billing Provider: KAYDEN PINEDO MD Common Visit Codes: NOT BILLABLE KAYDEN PINEDO MD Jul 08, 2024 17:16
--- NOTE | 2024-07-08 18:03 | DVHOP ---
DATE OF SURGERY: 07/08/2024 PREOPERATIVE DIAGNOSIS: Occlusive DVT with severe symptoms. POSTOPERATIVE DIAGNOSIS: Occlusive DVT with severe symptoms. This is a 54-year-old male coming in with a left lower extremity swelling and pain, inability to walk or ambulate. The patient denies a previous history of any medical conditions. He was found to have extensive DVT. Further evaluation showed bilateral PE, although he is on room air and asymptomatic from a pulmonary status, he was referred for DVT thrombectomy assessment. PROCEDURE PERFORMED: * Percutaneous transluminal mechanical thrombectomy, 21269. * Venography extremity unilateral, 72400. * Venography caval inferior, 95830. * Ultrasound-guided vascular access, saved to the PACS system, [id number]. * Injection procedure for extremity venography, 75700. * Introduction of catheter, IVC, 75460. * Selective catheter placement venous system, first order branch, 07958. * Selective catheter placement venous system, second order branch, 47901. DESCRIPTION OF PROCEDURE: The patient signed informed consent, understanding risks and benefits, and alternatives of the procedure, he wished to proceed. He was brought to the laborer livestock in a prone position. He was prepped in sterile fashion. I gave 5 mL 2% lidocaine to his left popliteal fossa. With ultrasound-guided access with robotic weld technician at the bedside, I cannulated the left popliteal vein, which was completely occlusive and placed a micro sheath in via micropuncture access. Venography at this point confirmed our location with extensive thrombus and collateralization already in the popliteal to the superficial femoral vein. At this point, over a stiff Glidewire was able to traverse into the IVC and I placed a 6-[place] GORE DrySeal sheath. Venogram was performed showing extensive thrombus to the left lower extremity. At this point, the patient was given 7000 units of IV heparin. I took a 6-[place] Lightning Penumbra device and performed mechanical thrombectomy and extirpation of thrombus from the popliteal vein, through the superficial femoral vein into the common femoral vein with extensive amount of thrombus removed. At this point, the IVUS catheter system was not functional at this hospital and there was some evidence of late stasis in the iliac region, so I am suspecting that the patient may eventually need a stent with a suspicion of May-Thurner, although this cannot be confirmed without IVUS. At this point, venography was performed showing no evidence of thrombus in the common femoral, external iliac or common iliac veins on the left side. Excellent flow throughout the superficial femoral vein and into the popliteal vein. At this point, I continue to perform thrombectomy from the distal superficial into the popliteal vein while I was there backing my introduction catheter to get as much clot out as possible. At the initiation of the procedure, the 16-[place] sheath was completely occluded with no flow. At the completion of procedure, the flow was significantly improved. At this point, all guides and wires were removed and manual hold was performed. There were no immediate complications. CONCLUSION: Successful extirpation of thrombus and clot removal of the left popliteal, superficial femoral and distal common femoral veins. Mechanical thrombectomy performed using the Penumbra 16-[place] Lightning catheter with 2 major passes done, significant amount of clot was removed. The patient would benefit for venography IVUS assessment and possible external iliac venous stenting in the future. PLAN: Anticoagulation and eventual transition to [facility]. Lee Aguiar MD CM/BENNY TID: [id number] RECEIPT: [id number]
[2024-07-09 05:00] VITALS: BP 109/64; PULSE 82; RESP 17; TEMP 98; O2SAT 98
--- NOTE | 2024-07-09 12:23 | DVHPN2 ---
Progress Note Date Seen: Jul 09, 2024 Medical Necessity Reason Pt with a Central, PICC or Fol: No Subjective Patient reports: Feels better Objective vital signs Vital Sign Date Time Temp Pulse Resp B/P (MAP) Pulse Ox O2 Delivery O2 Flow Rate FiO2 07/09/24 08:00 Room Air* 0 21 07/09/24 05:00 98.0 82 17 109/64 (79) 98 98.0 Total Intake and Output 07/08/24 07/08/24 07/09/24 15:00 23:00 07:00 Intake Total 0 ml 425 ml Balance 0 ml 425 ml medications Current Medications Medications Dose Ordered Sig/Dorian Route Start Time Stop Time Status Last Admin Dose Admin Acetaminophen 650 mg Q6HP PRN PO 07/04/24 14:15 Acetaminophen/ Hydrocodone Bitart 1 tab Q4HP PRN PO 07/04/24 14:15 Ondansetron HCl 4 mg Q4HP PRN IV 07/04/24 14:15 Enoxaparin Sodium 70 mg Q12HR SC 07/04/24 22:00 07/09/24 09:13 70 MG Examination: GENERAL:Normal, HEENT:Normal, HEENT:Abnormal, LUNGS:Normal, CVS:Normal, ABDOMEN:Normal laboratory and microbiology Laboratory Tests 07/08/24 05:22 Test 07/08/24 05:22 Range/Units Serum Glucose 92 74-106 mg/dL Problem List/Assessment/Plan Problem List/Assessment/Plan occlusive dvt htn leg pain r/o may thurner check cta recommend thrombectomy cont lovenox for now PE noted---no elevated biomarker, on room air, no RV strain, no indication for thrombectomy of PE at this time had long talk with pt and RN he wishes to proceed with dvt eval d/w risks benefits and alternatives s/p thrombectomy with extensive thrombus removal doac pt may eventually need venous stent for suspected may thurners , pt is aware Plan discussed with: Patient My Orders My Orders Orders - KAYDEN PINEDO MD Procedure Category Date Status Time Manager Database Administration: Obtain ORDERS 07/08/24 Transmitted Consent For: 14:30 Us Guidance For US 07/08/24 Taken Needle [place] 15:42 Post Cath Vital Signs JESSICA 07/08/24 In Process Q 15min 16:37 Post Cath Activity JESSICA 07/08/24 In Process Protocol 16:37 Communication Order ORDERS 07/08/24 Transmitted 18:51 Date of Service: Jul 09, 2024 Billing Provider: KAYDEN PINEDO MD Common Visit Codes: NOT BILLABLE KAYDEN PINEDO MD Jul 09, 2024 12:23
[2024-07-09 12:37] VITALS: BP 105/78; PULSE 83; RESP 16; TEMP 97.6; O2SAT 97
[2024-07-09] MEDS ORDERED: APIX5TAB PO (13:01)
--- NOTE | 2024-07-09 13:05 | DVHDS2 ---
Discharge Summary Date of Admission Jul 04, 2024 at 14:15 Date of Discharge: Jul 09, 2024 Admitting Diagnosis Left lower extremity DVT Labs/Diagnostic Data: Laboratory Results Test 07/08/24 05:33 07/08/24 05:22 07/05/24 16:14 07/05/24 14:30 Urine Color Yellow (Yellow) Urine Clarity Clear (Clear) Urine pH 5.5 (5.0-9.0) Urine Specific [place] 1.025 (1.001-1.035) Urine Protein Negative (Negative) Urine Ketones Negative (Negative) Urine Blood Negative /uL (Negative) Urine Nitrite Negative (Negative) Urine Bilirubin Negative (Negative) Urine Urobilinogen Normal mg/dL (Negative) Urine Leukocyte Esterase Negative /uL (Negative) Urine RBC None seen /hpf (0 - 3) Urine WBC 2 /hpf (0 - 3) Urine Squamous Epithelial Cells None seen /hpf (<5) Urine Bacteria None seen /hpf (None Seen) Urine Mucus Few (None Seen) Urine Glucose Normal mg/dL (Normal) Urine Opiates Screen Neg (NEGATIVE) Urine Fentanyl Screen Neg (NEGATIVE) Urine Barbiturates Screen Neg (NEGATIVE) Urine Phencyclidine Screen Neg (NEGATIVE) Urine Amphetamines Screen Neg (NEGATIVE) Urine Benzodiazepines Screen Neg (NEGATIVE) Urine Cocaine Screen Neg (NEGATIVE) Urine Cannabinoids Screen Neg (NEGATIVE) White Blood Count 5.8 10^3/uL (4.4-10.8) Red Blood Count 5.19 10^6/uL (4.5-5.90) Hemoglobin 15.2 g/dL (13.5-17.5) Hematocrit 44.3 % (41.0-53.0) Mean Corpuscular Volume 85.4 fL (80.0-100.0) Mean Corpuscular Hemoglobin 29.3 pg (28.0-32.0) Mean Corpuscular Hemoglobin Concent 34.3 g/dL (32.0-36.0) Red Cell Distribution Width 12.7 % (11.8-14.3) Platelet Count 282 10^3/uL (140-450) Mean Platelet Volume 7.3 fL (6.9-10.8) Neutrophils (%) (Auto) 64.7 % (37.0-80.0) Lymphocytes (%) (Auto) 22.4 % (10.0-50.0) Monocytes (%) (Auto) 9.1 % (0.0-12.0) Eosinophils (%) (Auto) 3.1 % (0.0-7.0) Basophils (%) (Auto) 0.7 % (0.0-2.0) Neutrophils # (Auto) 3.8 10 ^3/uL (1.6-8.6) Lymphocytes # (Auto) 1.3 10 ^3/uL (0.4-5.4) Monocytes # (Auto) 0.5 10 ^3/uL (0-1.3) Eosinophils # (Auto) 0.2 10 ^3/uL (0-0.8) Basophils # (Auto) 0 10 ^3/uL (0-0.2) Nucleated Red Blood Cells 0.2 % Prothrombin Time 10.8 sec (9.3-11.8) Prothrombin Time INR 1.02 (0.9-1.15) Activated Partial Thromboplast Time 33.2 SEC (24.5-34.5) Sodium Level 143 mmol/L (136-145) Potassium Level 3.9 mmol/L (3.5-5.1) Chloride Level 113 mmol/L (98-107) Carbon Dioxide Level 24 mmol/L (20-31) Anion Gap 6 (5-15) Blood Urea Nitrogen 15 mg/dL (9-23) Creatinine 1.13 mg/dL (0.700-1.30) Glomerular Filtration Rate Calc 72 mL/min (>90) BUN/Creatinine Ratio 13.3 (10.0-20.0) Serum Glucose 92 mg/dL (74-106) Calcium Level 9.3 mg/dL (8.7-10.4) Total Bilirubin 0.5 mg/dL (0.2-1.0) Aspartate Amino Transferase (AST) 36 U/L (13-40) Alanine Aminotransferase (ALT) 47 U/L (7-40) Alkaline Phosphatase 98 U/L (46-116) Total Protein 6.4 g/dL (5.7-8.2) Albumin 3.9 g/dL (3.2-4.8) Lactate Dehydrogenase 196 U/L (120-246) Carcinoembryonic Antigen < 0.50 ng/mL (<=5.0) Prostate Specific Antigen 3.26 ng/mL (0.0-4.0) Other Laboratory Tests 07/08/24 05:22 Brief Hx & Hospital Course: History of Present Illness 64-year-old male presented to the ED with complaint of left calf swelling and pain behind knee. Patient states he has had the pain x1 week. Patient also has mild redness to the left calf for the past week, patient states the pain is not as bad as when it started. Patient is able to walk however walking and standing increases left lower leg pain. Patient was started on Lovenox, and will be admitted to medical/surgical. 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 Patient states no history of any hematologic coagulation disorders, no family history, and no medical history for patient. Patient denies chest pain, headache, dizziness, diaphoresis, shortness of breath, abdominal pain, no nausea, vomiting, fever, or chills endorsed by the patient. Patient was admitted for further evaluation medical management. Course of hospitalization: Patient was started on anticoagulation with Lovenox. Cardiology consultation was obtained with Dr. Aguiar. Patient underwent thrombectomy of left lower extremity, with noted extensive thrombus to the lower extremity up to his iliac vein. Patient states that his pain has improved. He also had CT angiogram of the chest which revealed pulmonary embolism to his right main pulmonary artery, as well as small bilateral pulmonary embolisms. Patient has denied any chest pain, required O2 supplementation, or having any signs of near-syncope. Patient will be placed on Eliquis 10 mg twice a day for seven days, followed by 5 mg p.o. twice a day. The patient will follow up with the discharge Clinic in one week. He has been educated on the need to enroll in additional insurance given he only has Medicare part A. Patient verbalized understanding. Social service has also been consultation to assist with this manner. Physical exam General: Alert and Oriented x3. No acute distress. Well-nourished. Eyes: EOMI. Anicteric. HENT: Moist mucous membranes. Lungs: Clear to auscultation bilaterally. No accessory muscle use. Cardiovascular: Regular rate and rhythm. No murmur. No JVD. Abdomen: Soft, non-tender and non-distended. No palpable masses. Extremities: No edema. Non-tender. Skin: No rashes or lesions. Warm. Neurologic: No focal neurological deficits. CN II-XII grossly intact, but not individually tested. Psychiatric: Cooperative. Appropriate mood and affect. Total time spent with patient discussing and formulating plan of care: 35 minutes. This medical document was created using an electronic medical record system with [employer] system. Although this document has been carefully reviewed, there may still be some phonetic and typographical errors. These areas are purely typographical due to imperfections of the software programs, and do not reflect any compromise in the patient's medical care. Consults/Reason for consult Cardiology: Assess for thrombectomy of left lower extremity DVT Operations or Procedures 07/08/2024: Left lower extremity thrombectomy Condition at Discharge: Fair Final Diagnosis/Problems List Left lower extremity DVT, right main pulmonary artery emboli Secondary Diagnosis: PE to right main pulmonary artery Discharge Disposition: Home Discharge Instruct/Medications Diet: Regular Activity: No Restrictions, As Tolerated Follow Up/Referral: Discharge Clinic in one week Medications: Eliquis 10 mg p.o. twice a day x7 days then 5 mg p.o. twice a day 36 Discharge Statement: "Patient was advised to return to the ER or call 911 if any headaches, dizziness, shortness of breath, chest pain, abdominal pain, bleeding, fevers, or worsening of medical condition. Patient was counseled about treatment plan, medications, possible side effects, patientverbalized understanding. All questions were answered to the best of my ability. This discharge took greater then 30 minutes in planning, reviewing documentation, counseling the patient, and discussing with other team members." ASSESSMENT ASSESSMENT Assessment Left lower extremity DVT, right main pulmonary artery emboli Date of Service: Jul 09, 2024 Billing Provider: JAMI BELL NP Common Visit Codes: 92863-BRP/[id number] DISCH DAY >30min JAMI BELL NP Jul 09, 2024 13:05
[2024-07-09 13:41] LABS: Hematocrit 42.6 % (41.0-53.0); Hemoglobin 14.8 g/dL (13.5-17.5)
[2024-07-09 13:50] LABS: Anion Gap 7 (5-15); Carbon Dioxide 25 mmol/L (20-31); Chloride 111 mmol/L (98-107); Potassium 3.8 mmol/L (3.5-5.1); Sodium 143 mmol/L (136-145)
[2024-07-09 13:51] LABS: Calcium 9.3 mg/dL (8.7-10.4)
[2024-07-09 13:56] LABS: BUN/Creatinine Ratio 14.4 (10.0-20.0); Blood Urea Nitrogen 18 mg/dL (9-23); Glucose 132 mg/dL (74-106)
[2024-07-12 16:06] LABS: Protein C Antigen 87 % (60-150)
[2024-07-12 17:06] LABS: Dilute Prothrombin Time(dPT) 39.7 sec (0.0-47.6); PTT-LA 49.5 sec (0.0-43.5); PTT-LA Mix 45.8 sec (0.0-40.5); Protein S Antigen Free 103 % (61-136); Proten S Antigen Total 137 % (60-150); Thrombin Time 17.8 sec (0.0-23.0); dPT Confirm Ratio 1.07 Ratio (0.00-1.34); dRVVT 41.4 sec (0.0-47.0)
[2024-07-12 20:06] LABS: Hexagonal Phase Phospholipid 4 sec (0-11)
[2024-07-12 22:06] LABS: Lupus Interpretation Comment: (.)
== END 2024-07-09 15:10 | disposition home or self-care (01) | DRG 270 ==
LOC: ER 09:13 → OVERFLOW 14:15 → WEST WING 07-05 04:00
PROVIDERS: ADMIT Registered Nurse General Practice; ATTEND Nurse Practitioner Acute Care
PROC: X2CV3T7 Extirpation of Matter from Left Lower Extremity Vein using Computer-aided Mechanical Aspiration, Percutaneous Approach, New Technology Group 7 (ICD-10-PCS; principal; 2024-07-08)
PROC: B51CYZZ Fluoroscopy of Left Lower Extremity Veins using Other Contrast (ICD-10-PCS; 2024-07-08)
DX: I82.432 Acute embolism and thrombosis of left popliteal vein (principal); I26.99 Other pulmonary embolism without acute cor pulmonale; I10 Essential (primary) hypertension; Z79.01 Long term (current) use of anticoagulants; Z80.1 Family history of malignant neoplasm of trachea, bronchus and lung
CPT/HCPCS: 34203; 36012; 36415; 71275; 76937; 80048; 80053; 80307; 81001; 81241; 82378; 83615; 84153; 85014; 85018; 85025; 85302; 85305; 85306; 85610; 85613; 85670; 85705; 85730; 85732; 86850; 86900; 86901; 93306; 93971; 96360; 96372; 99152; C1894; G0378; J2250; Q9967